=== PATIENT | female | born 1970 | race Hispanic/Latino ===

== ENCOUNTER 2018-09-27 17:32 | Inpatient (IN) | payer SELFPAY ==
[~2018-09-27] VITALS: Ht 154.9 cm; Wt 111.1 kg
[2018-09-27 18:18] LABS: BASOPHILS % (AUTO) 0.7 % (0.0-5.0); EOSINOPHILS % (AUTO) 1.2 % (0.0-8.0); MEAN CORPUSCULAR HEMOGLOBIN 14.1 pg (27.0-33.0); MONOCYTES % (AUTO) 4.9 % (3.0-13.0); NEUTROPHILS % (AUTO) 81.2 % (40.0-77.0); NUCLEATED RED BLOOD CELLS 0.4 % (0.0-0.19); PLATELET COUNT (AUTO) 483 K/uL (130-400); RED BLOOD CELL COUNT(AUTO) 3.87 MIL/uL (4.00-5.50); WHITE BLOOD COUNT (AUTO) 13.5 K/uL (4.8-10.8)
[2018-09-27 18:27] LABS: INR 0.97 (0.85-1.15); PARTIAL THROMBOPLASTIN TIME 28.6 SEC (26.3-35.5); PROTHROMBIN TIME 10.2 SEC (9.6-11.6)
[2018-09-27 18:39] LABS: CREATININE 0.5 mg/dL (0.5-1.5); POTASSIUM 3.8 mmol/L (3.5-5.1)
[2018-09-27 18:44] LABS: HEMATOCRIT 20.9 % (36-48)
[2018-09-27 18:47] LABS: ALBUMIN 3.2 g/dL (3.5-5.0); BILIRUBIN,TOTAL 0.6 mg/dL (0.2-1.0); TOTAL PROTEIN, SERUM 8.2 g/dL (6.0-8.3)
[2018-09-27] MEDS ORDERED: SODIUM CHLORIDE 0.9% 1000ML 1,000 ML IV SCH (19:58)
[2018-09-27] MEDS ORDERED: ONDANSETRON HCL 4 MG/2 ML VIAL IV PRN (20:00)
[2018-09-27] MEDS ORDERED: NITROGLYCERIN 0.4 MG SL TAB SL PRN (20:00)
[2018-09-27] MEDS ORDERED: ACETAMINOPHEN 325 MG TAB PO PRN ×2 (20:00)
[2018-09-27] MEDS ORDERED: FAMOTIDINE 20MG TAB 20 MG TAB PO SCH (21:00)
[2018-09-27] MEDS ORDERED: FAMOTIDINE/PF 20 MG/2 ML VIAL IV ONE (21:01)
[2018-09-27] MEDS ORDERED: ASPIRIN 325 MG TABLET ONE (21:01)
[2018-09-27 21:36] LABS: APPEARANCE,URINE Clear (CLEAR); BILIRUBIN,URINE Negative (NEGATIVE); COLOR,URINE Yellow (YELLOW); GLUCOSE, URINE (UA) Negative (NEGATIVE); KETONES,URINE Negative (NEGATIVE); LEUKOCYTE ESTERASE ,URINE Trace (NEGATIVE); NITRATE,URINE Negative (NEGATIVE); OCCULT BLOOD,URINE Trace (NEGATIVE); PH,URINE 7.5 (5.0-8.0); PROTEIN,URINE Negative (NEGATIVE); UROBILINOGEN,URINE 0.2 mg/dL (0.2-1.0)
[2018-09-27 21:50] LABS: BACTERIA,URINE Rare /HPF (None Seen); RBC,URINE None Seen /HPF (0-1); SQUAMOUS EPITHELIAL CELL,UR None Seen /HPF (0-2)
[2018-09-27] MEDS ORDERED: ASPIRIN 325MG EC TAB 325 MG TABLET.DR PO SCH (22:00)
[2018-09-27 22:23] VITALS: BP 139/65
[2018-09-27] MEDS ORDERED: POTASSIUM CHLORIDE 20 MEQ ERTAB PO PRN (23:15)
[2018-09-27] MEDS ORDERED: MAGNESIUM 2GM PREMIX 50ML 50 ML IV PRN (23:15)
[2018-09-27] MEDS ORDERED: LIDOCAINE HCL-MPF 1% 2ML VIAL IVP PRN (23:15)
[2018-09-27] MEDS ORDERED: POTASSIUM CHLORIDE 10% ELIXIR 20 MEQ/15 ML UDCUP PO PRN (23:15)
[2018-09-27] MEDS ORDERED: POTASSIUM CHLORIDE 20MEQ/100ML 100 ML IV PRN (23:15)
[2018-09-27] MEDS ORDERED: MAGNESIUM 2GM PREMIX 50ML 50 ML IV ONE (23:37)
[2018-09-27 23:52] LABS: HEMOGLOBIN A1C 5.3 % (4.0-6.0)
[2018-09-28] VITALS (8 sets, daily range): BP systolic 109–131; BP diastolic 53–78
[2018-09-28 01:26] LABS: CREATINE KINASE, TOTAL 56 U/L (21-232); MYOGLOBIN 22 ng/mL (10-92); TROPONIN I < 0.04 ng/mL (0.00-0.06)
[2018-09-28 07:28] LABS: HEMATOCRIT 24.1 % (36-48); MEAN CORPUSCULAR HEMOGLOBIN 17.7 pg (27.0-33.0); MEAN CORPUSCULAR HGB CONC 29.5 g/dL (32.0-36.0); MEAN CORPUSCULAR VOLUME 59.9 fL (79-99); NUCLEATED RED BLOOD CELLS 0.8 % (0.0-0.19); PLATELET COUNT (AUTO) 426 K/uL (130-400); RED BLOOD CELL COUNT(AUTO) 4.03 MIL/uL (4.00-5.50); RED CELL DISTRIBUTION WIDTH 29.4 % (11.0-15.5)
[2018-09-28 07:54] LABS: CREATINE KINASE, TOTAL 62 U/L (21-232); MYOGLOBIN 23 ng/mL (10-92); TROPONIN I < 0.04 ng/mL (0.00-0.06)
--- NOTE | 2018-09-28 08:15 | NUR ---
DR. DIEZ CALLED RE PATIENT CONSULT AND INDICATED NOT AWARE. INFO PROVIDED TO DR. DIEZ AND ORDERS RECEIVED FOR CONTROL PILLS TO BE GIVEN AND WOULD STOP BY LATER TO SEE PATIENT. PATIENT MADE AWARE . DR. DOMINIQUE ROUNDED ON PATIENT AT THIS TIME AND INFO PROVIDED TO DR. DIEZ.
[2018-09-28 08:36] LABS: BILIRUBIN,TOTAL 2.5 mg/dL (0.2-1.0); CREATININE 0.5 mg/dL (0.5-1.5); MAGNESIUM 2.4 mg/dL (1.80-2.40); POTASSIUM 3.8 mmol/L (3.5-5.1); TOTAL PROTEIN, SERUM 7.4 g/dL (6.0-8.3)
[2018-09-28 08:59] LABS: EOSINOPHILS % (MANUAL) 4 % (1-6); LYMPHOCYTES % (MANUAL) 5 % (22-44); MONOCYTES % (MANUAL) 2 % (2-9); SEGMENTED NEUTROPHILS % 89 % (40-70)
[2018-09-28 09:00] LABS: MAN.DIFF COMMENT-IMPRESSION MANUAL DIFFERENTIAL; PLATELET MORPHOLOGY COMMENT SLIGHT INCREASED
[2018-09-28] MEDS ORDERED: NORETHINDRONE-ETHINYL ESTRAD 1 TABLET PO SCH (09:00)
[2018-09-28] MEDS ORDERED: ASPIRIN 325MG EC TAB 325 MG TABLET.DR PO SCH (09:00)
--- NOTE | 2018-09-28 14:00 | NUR ---
DR. DIEZ ROUNDED AND INDICATED TO PATIENT NEED TO FOLLOW UP WITH HIM AT [facility] IN ONE TO TWO WEEKS AND SCRIPT WILL BE GIVEN FOR CONTROL PILLS AND FERROUS SULFATE. PATIENT VERBALIZED UNDERSTANDING AND INDICATED WOULD FOLLOW UP INSTRUCTED.
--- NOTE | 2018-09-28 14:15 | NUR ---
DR. DOMINIQUE CALLED RE DR. DIEZ'S ORDER FOR DISCHARGE AND FOLLOW UP WITH [facility]. PATIENT VERBALIZED UNDERSTANDING AND WOULD DO SO. DR. DOMINIQUE AGREED WITH PLAN AND INDICATED TO DISCHARGE PATIENT.
--- NOTE | 2018-09-28 16:01 | NUR ---
D/C PLAN EVER spoke to pt regarding d/c planning. Pt is independent and lives with parents. States she follows up with Diann Vitale. CM provided community resources packet. Plan to home. CM to f/u Addendum: 09/28/18 at 1603 by ELENA KAUR CM Amended: Links added.
--- NOTE | 2018-09-28 17:20 | NUR ---
PATIENT WAS GIVEN DISCHARGE INSTRUCTIONS AND SALINE LOCKS AND IV REMOVED AND WAS THEN TAKEN VIA W/C TO FAMILY VEHICLE AND DISCHARGED TO FAMILY. PATIENT VERBALIZED UNDERSTANDING INSTRUCTIONS GIVEN.
== END 2018-09-28 17:20 | disposition home or self-care (01) | DRG 812 ==
LOC: EDH 17:32 → EDHIP 17:33 → WSH 22:00
PROVIDERS: ADMIT Internal Medicine; ATTEND Internal Medicine
PROC: 30233N1 Transfusion of Nonautologous Red Blood Cells into Peripheral Vein, Percutaneous Approach (ICD-10-PCS; principal; 2018-09-27)
DX: D62 Acute posthemorrhagic anemia (principal); Z68.42 Body mass index [BMI] 45.0-49.9, adult; N92.1 Excessive and frequent menstruation with irregular cycle; I25.10 Atherosclerotic heart disease of native coronary artery without angina pectoris; R07.9 Chest pain, unspecified; N80.0 Endometriosis of uterus; R79.89 Other specified abnormal findings of blood chemistry; E66.01 Morbid (severe) obesity due to excess calories; D72.829 Elevated white blood cell count, unspecified; Z90.49 Acquired absence of other specified parts of digestive tract; Z83.3 Family history of diabetes mellitus; Z82.49 Family history of ischemic heart disease and other diseases of the circulatory system; Z83.49 Family history of other endocrine, nutritional and metabolic diseases
CPT/HCPCS: 36415; 36430; 71045; 76856; 80053; 80061; 81001; 82550; 83036; 83735; 83874; 84484; 84702; 85025; 85060; 85610; 85730; 86850; 86900; 86901; 86922; 87040; 93005; G0378; J3475; J3490; P9016

== ENCOUNTER 2023-05-31 10:11 | Emergency (ER) | payer BC, SELFPAY ==
[~2023-05-31] VITALS: Ht 154.9 cm; Wt 122.5 kg
[2023-05-31 10:12] VITALS: BP 154/80; PULSE 67; RESP 16
[2023-05-31 12:11] LABS: APPEARANCE,URINE TURBID (CLEAR); BILIRUBIN,URINE NEGATIVE (NEGATIVE); COLOR,URINE YELLOW (YELLOW); GLUCOSE, URINE (UA) NEGATIVE (NEGATIVE); KETONES,URINE NEGATIVE (NEGATIVE); LEUKOCYTE ESTERASE ,URINE NEGATIVE Leu/uL (NEGATIVE); NITRATE,URINE NEGATIVE (NEGATIVE); PROTEIN,URINE 20 mg/dL (NEGATIVE); UROBILINOGEN,URINE 0.2 mg/dL (0.2-1.0)
[2023-05-31 12:13] LABS: ADD UA MICROSCOPIC YES
[2023-05-31 12:21] LABS: SARS-CoV-2, RNA, NAAT NEGATIVE SARS CoV-2 (NEGATIVE)
[2023-05-31 12:32] LABS: INFLUENZA TYPE A Negative For Type A (NEGATIVE); INFLUENZA TYPE B Negative For Type B (NEGATIVE)
[2023-05-31 12:45] LABS: RAPID GROUP A STREP positive (NEGATIVE)
[2023-05-31 12:57] LABS: BACTERIA,URINE MOD /HPF (None Seen); MUCUS,URINE FEW LPF (None Seen); OTHER CASTS, URINE 2 /LPF (None Seen); SQUAMOUS EPITHELIAL CELL,UR MANY /HPF (0-2)
[2023-05-31] MEDS ORDERED: AMOX1TAB16 PO (12:58)
[2023-05-31] MEDS ORDERED: CIPR2.5D18 OP (12:58)
== END 2023-05-31 13:57 | disposition home or self-care (01) ==
LOC: EDH 10:11
DX: J02.0 Streptococcal pharyngitis (principal); H10.9 Unspecified conjunctivitis; E11.9 Type 2 diabetes mellitus without complications; I10 Essential (primary) hypertension; Z90.49 Acquired absence of other specified parts of digestive tract; Z20.822 Contact with and (suspected) exposure to COVID-19
CPT/HCPCS: 99283; 87635; 87077; 87088; 87186; 87880; 87804 ×2; 81001; C9803

== ENCOUNTER 2024-04-19 20:36 | Emergency (ER) | payer BC ==
[~2024-04-19] VITALS: Ht 160 cm; Wt 115.2 kg
[~2024-04-19 20:36] MED LIST: AMOX1TAB16 PO; CIPR2.5D18 OP; IBUP-2077 PO
--- NOTE | 2024-04-19 20:53 | ERN ---
ED Note History of Present Illness Stated Complaint: LACERATION Chief Complaint: Laceration/Avulsion Time Seen by MD: 20:40 Time Seen by Midlevel: 20:40 Dictation: The patient is a 54-year-old female with a history of diabetes, hypertension, hysterectomy who presents to the emergency department with laceration to right palm of hand after handling broken champagne bottle onset 7:30 p.m.. Patient denies any other injuries. Unsure of tetanus vaccine status Allergies: Coded Allergies: No Known Allergies (Verified Allergy, Unknown, 09/27/18) Home Meds Active Scripts Ibuprofen (Ibuprofen 800 mg Tab) 800 Mg Tab, 800 MG PO Q8H PRN for fever or pain, #30 TAB 0 Refills Prov:TY DIEGO [employer]LE[employer]OR[employer] ASSISTANT 09/21/23 Ciprofloxacin HCl (Ciprofloxacin HCl) 0.3 % Drops, 2 DROP OP TID for 74 Days, #5 ML Prov:CHAVA MIRAMONTES V SMALL BUSINESS REPRESENTATIVE 05/31/23 Amoxicillin/Potassium Clav (Amox Tr-K Clv 875-125 mg Tab) 875 Mg-125 Mg Tablet, 1 EACH PO BID for 10 Days, #20 TAB Prov:CHAVA MIRAMONTES V SMALL BUSINESS REPRESENTATIVE 05/31/23 Past Medical History Past Medical History: Diabetes-Type II, Hypertension Surgical History: Hysterectomy, Cholecystectomy History: Not Applicable RN Note Reviewed/Agreed w/PFSH: Yes Review of System Dictation Constitutional: Negative for fever,chills, and weight loss Eyes: Negative for injury, pain,redness, and discharge ENT: Negative for injury,pain or swelling Cardiovascular: Negative for chest pain, palpitations, and edema Respiratory: Negative for shortness of breath, cough, and wheezing, Abdomen/GI: Negative for abdominal pain, nausea, vomiting, diarrhea, and constipation Back: Negative for injury and pain : Negative for injury, bleeding and discharge MS/Extremity: Negative for injury and deformity Skin: Negative for rash, and discoloration positive for laceration Neuro: Negative for headache, weakness, numbness, tingling, and seizure Psych: Negative for suicide ideation, homicidal ideation, and hallucinations Initial Vital Sign VS Vital Signs Date Time Temp Pulse Resp B/P (MAP) Pulse Ox O2 Delivery O2 Flow Rate FiO2 04/19/24 20:38 98.8 63 20 160/76 100 Room Air 04/19/24 21:26 0 21 Physical Exam Dictation Vital Signs reviewed General Appearance: Alert, oriented x 3, no acute distress, well developed, nourished. Head and Face: non-traumatic. Eyes: PERRL, pink conjunctivas, eyelid no trauma, anterior chamber with arcus senilis. Ears: Pinnas intact and no signs of trauma or erythema ear canals clear and no discharge TM no erythema Nose: No discharge, no bleeding. Oropharynx: Mouth normal, tongue pink. pharynx clear,no erythema, tonsils no exudates, no abscesses noted, mucous membrane moist Neck: Supple, non-tender, no thyromegaly, no masses, no JVD, no bruits Breast:Deferred Chest:No tenderness, no crepitus, no paradoxical movement, no retractions Lungs:Clear, well-ventilated, symmetric, no rales, no wheezing, no rhonchi, no stridor, good breath sounds bilaterally Heart: Regular rate, regular rhythm, no murmur, no gallops Vascular: no peripheral edema, Abdomen: Soft, positive bowel sounds, nondistended, no guarding, nontender, no rebound, no masses no hepatomegaly, no splenomegaly, no Shaikh's sign, no hernias. Rectal: Deferred Genital: Deferred Neurological: Normal speech, motor function intact, sensory function intact Musculoskeletal: Neck nontender, full range of motion, back nontender, full range of motion, Extremities: nontender, full range of motion , full range of motion to hand, cap refill less than 2 seconds, Skin: Color pink, dry, no turgor, no rash,no abrasions, no contusions. Laceration to right palm of hand about 2 cm Lymphatic: Deferred Results (Laboratory/Radiology) Laboratory/Radiology REASON: LACERATION, R/O F/O ORDERING PHYSICIAN: NELY LAST MD PROCEDURE: HAND 3V RT - HAND 3+VWS RT HAND 3+VWS RT CLINICAL HISTORY: LACERATION COMPARISON: None TECHNIQUE: AP lateral and oblique images were obtained. FINDINGS: No obvious fracture or dislocation. No joint effusion. The soft tissues appear unremarkable. No radiopaque foreign bodies. IMPRESSION: There are no acute findings and no identified radiopaque foreign body. Labs Reviewed?: Yes ED Course ED Course Orders Procedure Category Date Status Time Hand 3+Vws Rt RAD 04/19/24 Resulted 20:38 Diph,Pertuss(Acell),Tet PHA 04/19/24 Complete Vac/Pf (Tdap) 21:00 Lidocaine Hcl 1% 20ml PHA 04/19/24 In Process Vial (Lidocaine Hc 21:00 Acetaminophen 500mg PHA 04/19/24 Complete Tab (Tylenol 500mg T 21:00 Wound Care (Er) CPOE 04/19/24 Transmitted 20:48 Laceration Tray Set CPOE 04/19/24 Transmitted Up (Er) 21:07 Neomy PHA 04/19/24 Complete Sulf/Bacitra/Polymyxin 21:30 Cephalexin 500 Mg PHA 04/19/24 Complete Capsule (Keflex 500 Mg 21:30 Current Medications Medications (Trade) Dose Ordered Sig/Queenie Route PRN Reason Start Time Stop Time Status Last Admin Dose Admin Acetaminophen (TYLenol 500MG TAB) 1,000 mg ONCE ONCE PO 04/19/24 21:00 04/19/24 21:01 DC 04/19/24 21:13 Cephalexin (Keflex 500 MG CAPS) 500 mg ONCE ONCE PO 04/19/24 21:30 04/19/24 21:31 DC 04/19/24 21:16 Diphtheria/ Tetanus/Acell Pertussis (Tdap) 0.5 ml ONCE ONCE IM 04/19/24 21:00 04/19/24 21:01 DC 04/19/24 21:15 Lidocaine HCl (Lidocaine HCl 1% 20ml Vial) 10 ml ONCE INJ 04/19/24 21:00 05/19/24 20:59 Neomycin/ Polymyxin/ Bacitracin (Triple Antibiotic Ointment) 1 appl ONCE ONCE TP 04/19/24 21:30 04/19/24 21:31 DC 04/19/24 21:17 Vital Signs Date Time Temp Pulse Resp B/P (MAP) Pulse Ox O2 Delivery O2 Flow Rate FiO2 04/19/24 21:26 98.1 69 18 157/68 98 Room Air* 0 21 04/19/24 20:38 98.8 63 20 160/76 100 Room Air Medical Decision Making MDM The patient is a 54-year-old female with a history of diabetes, hypertension, hysterectomy who presents to the emergency department with laceration to right palm of hand after handling broken champagne bottle onset 7:30 p.m.. Patient denies any other injuries. Unsure of tetanus vaccine status Differential diagnosis: Retained foreign object, hand fracture, laceration, cellulitis X-ray showed no fractures or retained objects. Repair was made. Patient tolerated procedure well. Need for hospitalization: Patient does not meet criteria for hospitalization. There are no social concerns with this patient. Procedure Procedure Dictation: Time and Date Performed: 02/18/20242129 INDICATION: Laceration Location: Right palm Informed consent was obtained. Pre-procedure time out was obtained. Anesthetic: Lidocaine 1% Manual prep of skin and wound was done with Betadine saline Foreign Body: NO foreign bodies were identified. Length Repaired: 2 cm, 2 cm Suture used: Ethilon 5 # of simple sutures:5 Aseptic technique was used during the entire procedure. Wound Location: upper extremity Wound's Depth, Shape: irregular Wound Explored: clean Betadine Prep?: Yes Anesthesia: 1% Lidocaine Wound Debrided: minimal Wound Repaired With: sutures Suture Size/Type: 5:0, nylon Number of Sutures: 5 DX & DISP Disposition: Discharge Departure Impression: Primary Impression: Laceration of hand, right Condition: Stable Scripts Cephalexin Monohydrate (Keflex) 500 Mg Cap 500 MG PO QID for 7 Days, #28 CAP Prov: DUTCH PINEDA [facility] 04/19/24 Additional Instructions: Keep your stitches clean and dry. Do not put your stitches under water, such as in a bath, pool, or steinberg. This can slow healing and raise your chance of getting an infection. Avoid activities or sports that could hurt the area of your stitches for 1-2 weeks. You should call your doctor if you develop any fever, redness or swelling around the cut, or pus draining from the cut. Your sutures will need to be removed in 10-14 days. FOLLOW-UP WITH PRIMARY CARE PROVIDER IN 1 TO 2 DAYS. TAKE MEDICATIONS DIRECTED HERE IN THE EMERGENCY ROOM. OKAY TO CONTINUE HOME MEDICATIONS UNLESS OTHERWISE DISCUSSED DURING YOUR VISIT IN THE EMERGENCY ROOM TODAY. RETURN TO YOUR NEAREST EMERGENCY ROOM IF SYMPTOMS WORSEN OR IF THERE IS NO IMPROVEMENT. CALL 911 IF YOU NEED IMMEDIATE ASSISTANCE. TAKE TYLENOL OR MOTRIN [id number] NEEDED AND IF NO CONTRAINDICATIONS ARE PRESENT. INCREASE ORAL HYDRATION. A WOUND CULTURE OR URINE CULTURE WAS ORDERED HERE IN THE EMERGENCY ROOM DEPARTMENT PLEASE FOLLOW-UP WITH PRIMARY CARE PROVIDER AND ADVISE THEM TO GET REPEAT PORTS FROM OUR FACILITY. IF YOU HAD ANY NETO WRAP/SPLINTS THAT WERE APPLIED HERE, PLEASE DO NOT REMOVE THEM UNTIL YOU SEE YOUR PRIMARY CARE OR SPECIALTY. Referrals: BEATRIZ JOHN DO (PCP) Time of Disposition: 21:57 I have reviewed the case, and I agree with, Diagnosis and Plan DUTCH PINEDA SMALL BUSINESS REPRESENTATIVE Apr 19, 2024 20:53
[2024-04-19] MEDS: LIDOCAINE HCL 1% 20 ML VIAL INJ SCH (21:00)
[2024-04-19] MEDS: acetaMINOPHEN 500 MG TABLET PO ONE (21:13)
[2024-04-19] MEDS: DIPH,PERTUSS(ACELL),TET VAC/PF 0.5 ML VIAL IM ONE (21:15)
[2024-04-19] MEDS: cePHALexin 500 MG CAPSULE PO ONE (21:16)
[2024-04-19] MEDS: NEOMY SULF/BACITRA/POLYMYXIN B 1 EACH PACKET TP ONE (21:17)
--- NOTE | 2024-04-19 21:43 | HMCIMG ---
HAND 3+VWS RT CLINICAL HISTORY: LACERATION COMPARISON: None TECHNIQUE: AP lateral and oblique images were obtained. FINDINGS: No obvious fracture or dislocation. No joint effusion. The soft tissues appear unremarkable. No radiopaque foreign bodies. IMPRESSION: There are no acute findings and no identified radiopaque foreign body.
[2024-04-19] MEDS ORDERED: CEPH500B PO (21:58)
[2024-04-19 22:12] VITALS: BP 136/60; PULSE 72; RESP 20; TEMP 98.2; O2SAT 99
== END 2024-04-19 22:23 | disposition home or self-care (01) ==
LOC: EDH 20:36
DX: S61.411A Laceration without foreign body of right hand, initial encounter (principal); E11.9 Type 2 diabetes mellitus without complications; I10 Essential (primary) hypertension; Z90.49 Acquired absence of other specified parts of digestive tract; Z90.710 Acquired absence of both cervix and uterus; W25.XXXA Contact with sharp glass, initial encounter; Y93.89 Activity, other specified; Y92.89 Other specified places as the place of occurrence of the external cause; Y99.8 Other external cause status
CPT/HCPCS: 12001; 12002; 73130; 90471; 90715; 99284

== ENCOUNTER 2025-05-15 10:17 | Emergency (ER) | payer BC ==
[~2025-05-15] VITALS: Ht 154.9 cm; Wt 121.6 kg
--- NOTE | 2025-05-15 10:34 | ERN ---
ED Note History of Present Illness Stated Complaint: FALL Chief Complaint: Mechanical Fall Time Seen by MD: 10:24 Time Seen by Midlevel: 10:40 Dictation: Ms. Su is a 55-year-old pleasant female with history of morbid obesity, hypertension, and type 2 diabetes who presented to the emergency department this morning for evaluation after a fall. She states that last night at around 2200 she slipped going down some steps and landed on her back. She states she did strike the back of her head but did not lose consciousness. She denies use of anticoagulants. She stated that initially she had a headache and some low back/coccyx pain but that has not improve. Her primary complaint now is pain to the left lower leg and ankle. She states she has swelling to the lateral aspect of her ankle and she has pain with weight-bearing. She states she slept poorly last night. She denies fever, chills, shortness of breath, cough, chest pain, palpitations, edema, abdominal pain, nausea, vomiting, hematemesis, constip ation, diarrhea, melena, hematochezia, dysuria, headache, dizziness, or focal weakness/paresthesia. She denies neck pain, incontinence of bowel or bladder, or saddle anesthesia Allergies: Coded Allergies: No Known Allergies (Verified Allergy, Unknown, 09/27/18) Home Meds Active Scripts Ibuprofen (Ibuprofen) 600 Mg Tablet, 1 TAB PO TID for pain, #15 TAB 0 Refills with food Prov:GÉNESIS ORTEGA AITCHBONE BREAKER 05/15/25 Cyclobenzaprine HCl (Flexeril) 10 Mg Tab, 1 TAB PO HS for muscle spasms, #8 TAB 0 Refills Prov:GÉNESIS ORTEGA AITCHBONE BREAKER 05/15/25 Cephalexin Monohydrate (Keflex) 500 Mg Cap, 500 MG PO QID for 7 Days, #28 CAP Prov:DUTCH PINEDA AITCHBONE BREAKER 04/19/24 Ibuprofen (Ibuprofen 800 mg Tab) 800 Mg Tab, 800 MG PO Q8H PRN for fever or pain, #30 TAB 0 Refills Prov:TY DIEGO AITCHBONE BREAKER 09/21/23 Ciprofloxacin HCl (Ciprofloxacin HCl) 0.3 % Drops, 2 DROP OP TID for 74 Days, #5 ML Prov:CHAVA MIRAMONTES V AITCHBONE BREAKER 05/31/23 Amoxicillin/Potassium Clav (Amox Tr-K Clv 875-125 mg Tab) 875 Mg-125 Mg Tablet, 1 EACH PO BID for 10 Days, #20 TAB Prov:CHAVA MIRAMONTES V AITCHBONE BREAKER 05/31/23 Past Medical History Past Medical History: Diabetes-Type II, Hypertension Surgical History: Hysterectomy, Cholecystectomy History: Not Applicable RN Note Reviewed/Agreed w/PFSH: Yes Review of System Dictation REVIEW OF SYSTEMS: CONSTITUTIONAL: Patient denies fevers, chills, sweats and weight changes. EYES: Patient denies any visual symptoms. EARS, NOSE, AND THROAT: No difficulties with hearing. No symptoms of rhinitis or sore throat. CARDIOVASCULAR: Patient denies chest pains, palpitations, orthopnea and paroxysmal nocturnal dyspnea. RESPIRATORY: No dyspnea on exertion, no wheezing or cough. GI: No nausea, vomiting, diarrhea, constipation, abdominal pain, hematochezia or melena. : No urinary hesitancy or dribbling. No nocturia or urinary frequency. No abnormal urethral discharge. MUSCULOSKELETAL: Reports left ankle and left lower leg pain with swelling; pain with weight-bearing. She reports mild coccygeal discomfort. She denies neck pain. NEUROLOGIC: No chronic headaches, no seizures. Patient denies numbness, tingling or weakness. She denies loss of bowel/bladder. Denies saddle anesthesia. PSYCHIATRIC: Patient denies problems with mood disturbance. No problems with anxiety. ENDOCRINE: No excessive urination or excessive thirst. DERMATOLOGIC: Patient denies any rashes or skin changes. Initial Vital Sign VS Vital Signs Date Time Temp Pulse Resp B/P (MAP) Pulse Ox O2 Delivery O2 Flow Rate FiO2 05/15/25 10:34 98.1 58 16 148/67 98 Room Air 0 Physical Exam Dictation Vital signs: Reviewed. Afebrile Constitutional: No acute distress. Pleasant. Head/Face: Normocephalic, atraumatic. Eyes: Periorbital areas with no swelling, redness, or edema. Lids and lashes are normal. Conjunctival injection is absent. Sclera anicteric. Pupils equal, round, reactive to light. ENT: Pinnas intact and no signs of trauma or erythema. Ear canals clear and no discharge. TMs no erythema. No nasal discharge or bleeding noted. Oropharynx with no exudate, redness, swelling, masses, exudates, or evidence of obstruction. Uvula midline. Mucous membranes moist. Neck: Trachea midline, no masses palpated, and no cervical lymphadenopathy. No swelling. Supple, full range of motion. Chest/Axilla: No tenderness, no crepitus, no paradoxical movement, no retractions. Cardiovascular: Regular rate, regular rhythm, no murmur, no gallops. Symmetric pulses. No peripheral edema. BP 148/67. Respiratory: Respirations even and unlabored. Lung sounds clear; no wheezes, rales or rhonchi. Room air SpO2 98% Gastrointestinal: Morbidly obese.. No distention is appreciated. Bowel sounds are normal. No mass or organomegaly . There is no tenderness. No rebound. No rigidity. No voluntary or involuntary guarding. No Shaikh's sign. Neurological: Normal speech, gross motor function intact, gross sensory function intact. No focal weakness/Paresthesia. Musculoskeletal/Extremities: She has full cervical range of motion without pain; no midline cervical tenderness. The left lower extremity has swelling and tenderness over the left ankle and anterior/lateral tibia. She has pain with weight-bearing. She has intact distal neuro vascularity; good color, warmth, movement, and sensation. She has localized tenderness over the sacrum/coccyx; no midline lumbar spine tenderness. Her left knee has full range of motion; chronic pain only. Integumentary: Intact. Skin is normal color, warm and dry. Cap refill less than 3 seconds. Results (Laboratory/Radiology) X-RAY Comment: PATIENT: JASMINE SU MR#: [id number] : 1970 SEX: F AGE: 55 LOCATION: [facility] ORDER [id number] STATUS: [facility] REPORT#: [id number] SERVICE 1053 REASON: fall injury ORDERING PHYSICIAN: GÉNESIS ORTEGA AITCHBONE BREAKER PROCEDURE: TIBFIB LT - TIBIA/FIBULA 2VWS LT EXAM: CR left Tibia and fibula, 5 View. CLINICAL HISTORY: fall injury COMPARISON: None provided. FINDINGS: BONES: No acute fracture or aggressive appearing osseous lesion. JOINTS: No dislocation. The joint spaces are normal. SOFT TISSUES: The soft tissues are unremarkable. IMPRESSION: 1. No acute osseous injury. /[place] DICTATED BY: ALLA MCFARLAND Jr., MD DATE: 05/15/251401 ELECTRONICALLY SIGNED BY: ALLA MCFARLAND Jr., MD DATE: 05/15/251401 ED Course ED Course Orders Procedure Category Date Status Time Hydrocodone/Apap PHA 05/15/25 Complete 5/325 ([place] 5/325mg) 11:00 Cyclobenzaprine Hcl PHA 05/15/25 Complete (Cyclobenzaprine Hcl 11:00 Ankle Comp 3vws Lt RAD 05/15/25 Resulted 10:53 Tibia/Fibula 2vws Lt RAD 05/15/25 Resulted 10:53 Apply Ice Pack To: CPOE 05/15/25 Transmitted (Er) 10:53 Apply Troy Wrap (Er) CPOE 05/15/25 Transmitted 13:32 Crutches W/Training CPOE 05/15/25 Transmitted (Er) 13:32 Ketorolac 60mg/2ml PHA 05/15/25 Verified (Toradol 60mg/2ml) 14:30 Current Medications Medications (Trade) Dose Ordered Sig/Queenie Route PRN Reason Start Time Stop Time Status Last Admin Dose Admin Acetaminophen/ Hydrocodone Bitart (NORco 5/325MG) 1 tab ONCE ONCE PO 05/15/25 11:00 05/15/25 11:01 DC 05/15/25 12:30 Cyclobenzaprine HCl (Cyclobenzaprine HCl) 5 mg ONCE ONCE PO 05/15/25 11:00 05/15/25 11:01 DC 05/15/25 12:32 Vital Signs Date Time Temp Pulse Resp B/P (MAP) Pulse Ox O2 Delivery O2 Flow Rate FiO2 05/15/25 10:34 98.1 58 16 148/67 98 Room Air [address] [place] [address] rule; imaging is not indicated. She had no loss of consciousness, no anticoagulant use no persistent headache, vomiting, or neurological deficits. She has normal mental status, and mechanism consistent with low risk fall. Cervical spine imaging meets nexus low risk criteria: No neck pain, full painless range of motion, no midline cervical tenderness, and no neurologic deficits. Lumbar spine imaging not indicated; localized coccygeal tenderness only. She has no midline lumbar pain, no neurologic deficit, no bowel/bladder incontinence. She did have x-rays of the left tib/fib and ankle which is negative for acute fracture or dislocation. Troy wrap/ICE pack applied. She was provided and instructed on crutch use. Vital signs remained stable; afebrile and normotensive with room air SpO2 98%. X-rays of the left tib-fib and left ankle are negative for fracture or dislo cation. There was an incidental finding of calcaneal spurs. While in the ED she received ice pack application to left ankle, [place], Toradol and Flexeril. Troy wrap/ice pack applied to the left ankle as she was instructed on use of you were crutches. Medical Decision Making MDM MDM: Differential diagnosis: Left ankle sprain versus fracture, left tibial contusion versus fracture, coccygeal contusion, closed head injury without intracranial hemorrhage, soft tissue injury of the lower extremity Rationale: Tests considered and ordered secondary to shared decision making include: X-ray Previous outside records reviewed: Old ER visits. Risk of complication and/or morbidity or mortality of patient management: None Medications-Per medication reconciliation Need for hospitalization: Patient does not meet criteria for hospitalization. Need for emergency major/minor surgery: No There are no social concerns with this patient. Prescription drug management: Ibuprofen, Flexeril Prescriptions will include symptomatic care Patient's prior external medical records from other ER visits were reviewed by me as indicated. Prior testing and results from previous visits were reviewed. Prior tests were taken into account with medical decision making and resource utilization, independent historian/historians were used to obtain complete medical history. I independently interpreted the test that were performed, results were reviewed by me and considered findings on radiology if ordered. Medical management and examination interpretation discussions were had by me with other qualified healthcare professionals as indicated for the patient's care. DX & DISP Disposition: Discharge Departure Impression: Primary Impression: Left ankle sprain Additional Impressions: Contusion of lower leg, left, Contusion of coccyx, incidental finding of plantar and retrocalcaneal spurs Condition: Stable Scripts Ibuprofen (Ibuprofen) 600 Mg Tablet 1 TAB PO TID for pain, #15 TAB 0 Refills with food Prov: GÉNESIS ORTEGA AITCHBONE BREAKER 05/15/25 Cyclobenzaprine HCl (Flexeril) 10 Mg Tab 1 TAB PO HS for muscle spasms, #8 TAB 0 Refills Prov: GÉNESIS ORTEGA AITCHBONE BREAKER 05/15/25 Additional Instructions: X-rays of your left ankle in the left tibia/fibula were negative for fracture or dislocations. Your findings are consistent with a soft tissue injury and ankle sprain. There was an incidental finding of plantar and retrocalcaneal spurs. Rest: Limit activity for 48-72 hours. Ice 20 minutes at a time; 3-4 times daily. Compression Troy wrap during the day. Elevate leg above the level of heart when possible. Use crutches for the next few days. Take ibuprofen 600 mg every 6-8 hours as needed for pain/inflammation. Take with food to avoid stomach upset). Flexeril at night as needed for muscle spasms. No driving or drinking alcohol while taking this. Follow up with your primary care or Orthopedics in the next 5-7 days if pain or swelling persists. Follow up earlier if pain worsens. Return to the ED for increased pain/swelling, inability to bear weight after several days, numbness/tingling/color change of the foot. Fever/redness spreading of the leg, or new or worsening symptoms. Referrals: BEATRIZ JOHN DO (PCP) Time of Disposition: 14:14 GÉNESIS ORTEGAP May 15, 2025 10:34
--- NOTE | 2025-05-15 12:15 | NUR ---
[facility].
[2025-05-15] MEDS: HYDROcodone/APAP 5/325 1 TAB TABLET PO ONE (12:30)
[2025-05-15] MEDS: CYCLOBENZAPRINE HCL 10 MG TABLET PO ONE (12:32)
--- NOTE | 2025-05-15 13:03 | HMCIMG ---
*:first-child]:mt-0"> STUDY CR left ankle, 3 views. HISTORY Fall injury. TECHNIQUE Frontal, lateral, and oblique radiographs of the left ankle. COMPARISON None provided. FINDINGS Bones No acute fracture or aggressive appearing osseous lesion. Plantar calcaneal spur and retrocalcaneal enthesophyte are present. Joints Ankle mortise is preserved without dislocation. Joint spaces are within normal limits. No radiographic evidence of significant joint effusion. Soft tissues Mild soft tissue swelling about the ankle, most pronounced adjacent to the hindfoot. IMPRESSION * Plantar and retrocalcaneal calcaneal spurs. * Mild periarticular soft tissue swelling about the left ankle. * No acute fracture identified. /[place]
--- NOTE | 2025-05-15 13:03 | HMCIMG ---
EXAM: CR left Tibia and fibula, 5 View. CLINICAL HISTORY: fall injury COMPARISON: None provided. FINDINGS: BONES: No acute fracture or aggressive appearing osseous lesion. JOINTS: No dislocation. The joint spaces are normal. SOFT TISSUES: The soft tissues are unremarkable. IMPRESSION: 1. No acute osseous injury. /[place]
[2025-05-15 14:15] VITALS: BP 99/60; PULSE 70; RESP 20; TEMP 97.3; O2SAT 98
--- NOTE | 2025-05-15 14:15 | NUR ---
NETO WRAP BANDAGE PLACED ON PATIENT'S LEFT FOOT/ANKLE, INSTRUCTED & DEMONSTRATED PATIENT ON HOW TO BANDAGE FOOT/ANKLE WITH NETO WRAP & ALSO ON USE OF CRUTCHES. GAVE PATIENT PAIR OF CRUTCHES. PATIENT VERBALIZED UNDERSTANDING, RETURNED CORRECT DEMONSTATION, AND REPEATED INSTRUCTIONS CORRECTLY. ICE PACK APPLIED. MD INSTRUCTED PATIENT ON R.I.C.E. AND DISCHARGE INSTRUCTIONS.
== END 2025-05-15 14:45 | disposition home or self-care (01) ==
LOC: EDH 10:17
DX: S93.402A Sprain of unspecified ligament of left ankle, initial encounter (principal); S80.12XA Contusion of left lower leg, initial encounter; S30.0XXA Contusion of lower back and pelvis, initial encounter; M77.32 Calcaneal spur, left foot; E11.9 Type 2 diabetes mellitus without complications; I10 Essential (primary) hypertension; Z79.1 Long term (current) use of non-steroidal anti-inflammatories (NSAID); Z90.49 Acquired absence of other specified parts of digestive tract; Z90.710 Acquired absence of both cervix and uterus; W01.0XXA Fall on same level from slipping, tripping and stumbling without subsequent striking against object, initial encounter; Y93.89 Activity, other specified; Y92.89 Other specified places as the place of occurrence of the external cause; Y99.8 Other external cause status
CPT/HCPCS: 99284; 73610; 73590; 96372; J1885